=== PATIENT | male | born 1965 | race American Indian/Alaskan Native ===

== ENCOUNTER 2019-05-16 16:13 | Emergency (ER) | payer SELFPAY ==
--- NOTE | 2019-05-16 16:28 | Emergency Department Report ---
Blank Doc - Documentation Documentation: This is a 54-year-old male that presents with right ringer finger lac. This initial assessment/diagnostic orders/clinical plan/treatment(s) is/are subject to change based on patient's health status, clinical progression and re- assessment by fellow clinical providers in the ED. Further treatment and workup at subsequent clinical providers discretion. Patient/guardians urged not to elope from the ED as their condition may be serious if not clinically assessed and managed. Initial orders include: 1- Patient sent to [facility] for further evaluation and treatment
[2019-05-16 16:29] VITALS: BP 158/107
[2019-05-16] MEDS ORDERED: BOOSTRIX IM ONE (18:28)
--- NOTE | 2019-05-16 20:03 | Emergency Department Report ---
ED Laceration HPI - HPI Chief Complaint: Wound/Laceration Stated Complaint: FINGER LAC Time Seen by Provider: 05/16/19 16:27 Occurred When: Today Location: Upper Extremity Severity: mild Tetanus Status: Unknown Laceration Symptoms: Yes Pain, No Foreign Body Sensation, No Numbness, No Weakness Other History: Laceration finger on a tin can earlier today. The emergency department for further evaluation. Reports that he does have full range of motion. Pain is worse with palpation ED Review of Systems ROS: Stated complaint: FINGER LAC Other details as noted in HPI Comment: All other systems reviewed and negative ED Past Medical Hx - Past Medical History Previous Medical History?: No - Surgical History Past Surgical History?: Yes Additional Surgical History: right leg - Social History Smoking Status: Never Smoker Substance Use Type: Alcohol Laceration Physical Exam - Exam General: Vital signs noted. No distress. Alert and acting appropriately. Wound Length (cm): 0 (1.5 cm) Laceration Location: Upper Extremity Full Body Front + Back: 1 - Laceration to dorsum finger at the just below proximal interphalangeal joint Laceration Exam: Yes Normal Distal CMS, No Foreign Body, No Exposed Tendon, Vessel, or Nerve, No Tendon Injury ED Course Vital Signs 05/16/19 16:28 Temperature 98.0 F Pulse Rate 109 H Respiratory 20 Rate Blood Pressure 158/107 O2 Sat by Pulse 95 Oximetry - Laceration /Wound Repair Finger Wound Location: upper extremity Wound's Depth, Shape: linear Wound Explored: clean Wound Repaired With: Dermabond Progress: Placed in a splint Critical care attestation.: If time is entered above; I have spent that time in minutes in the direct care of this critically ill patient, excluding procedure time. ED Disposition Clinical Impression: Finger laceration Disposition: - TO HOME OR SELFCARE Is pt being admited?: No Does the pt Need Aspirin: No Condition: Stable Instructions: Finger Laceration (ED), Skin Adhesive Care (ED) Referrals: CARLOS PERALTA MD [Primary Care Provider] - 3-5 Days
== END 2019-05-16 20:01 | disposition home or self-care (01) ==
LOC: ED 16:13
DX: S61.212A Laceration without foreign body of right middle finger without damage to nail, initial encounter (principal); W45.8XXA Other foreign body or object entering through skin, initial encounter; Y93.89 Activity, other specified; Y92.89 Other specified places as the place of occurrence of the external cause; Y99.8 Other external cause status
CPT/HCPCS: 90471; 90715

== ENCOUNTER 2019-05-22 19:30 | Emergency (ER) | payer SELFPAY ==
[2019-05-22] MEDS ORDERED: TYLENOL PO ONE (20:24)
--- NOTE | 2019-05-22 20:24 | Event Note ---
ED Screening Note ED Screening Note: sp fall down the stairs co w wrist pain tylenol in triage This initial assessment/diagnostic orders/clinical plan/treatment(s) is/are subject to change based on patients health status, clinical progression and re- assessment by fellow clinical providers in the ED. Further treatment and workup at subsequent clinical providers discretion. Patient/guardian urged not to elope from the ED as their condition may be serious if not clinically assessed and managed. Initial orders include: sling xray ice
[2019-05-22] MEDS ORDERED: NORCO 5/325 PO ONE (21:00)
--- NOTE | 2019-05-22 21:23 | XRay Report ---
Examination: Right wrist radiograph, 4 views, 05/22/2019 Clinical information: Acute right wrist pain after fall. Comparison: None. Findings: There is a mildly impacted nondisplaced fracture of the distal radius with associated soft tissue swelling. No additional acute bony abnormality is identified. Signer Name: Sarah Cloud MD Signed: 05/22/2019 9:19 PM Workstation Name: [id number]
--- NOTE | 2019-05-22 21:25 | XRay Report ---
Examination: Right elbow radiograph, 2 views, 05/22/2019 Clinical information: Acute right elbow pain after trauma. Fall. Comparison: None. Findings: There is no evidence of acute bony fracture or dislocation of the left elbow. No significan t soft tissue swelling is identified. Signer Name: Sarah Cloud MD Signed: 05/22/2019 9:21 PM Workstation Name: [id number]
--- NOTE | 2019-05-22 22:50 | Emergency Department Report ---
ED Extremity Problem HPI - General Chief complaint: Extremity Injury, Upper Stated complaint: FALL/ARM INJURY Time Seen by Provider: 05/22/19 20:23 Source: patient Mode of arrival: Ambulatory Limitations: No Limitations - History of Present Illness Initial comments: Patient is a 54-year-old Citizen [place] male who is complaining of some right wrist and forearm pain. Patient states he was at work and tripped and fell down approximately 12 stairs. Patient tried to brace himself on the way down. This happened approximately 2 hours ago. He denies any head injury or loss of consciousness. Patient's only complaint is his right wrist and he has 10 out of 10 pain was worse with movement better with rest. Severity scale (0 -10): 9 - Related Data Previous Rx's Medication Instructions Recorded Last Taken Type HYDROcodone/APAP 5-325 [[place] 1 each PO Q6HR PRN #14 tablet 05/22/19 Unknown Rx 5/325] Ibuprofen [Motrin 800 MG tab] 800 mg PO Q8HR PRN #10 tablet 05/22/19 Unknown Rx Allergies Allergy/AdvReac Type Severity Reaction Status Date / Time No Known Allergies Allergy Verified 05/16/19 16:15 ED Review of Systems ROS: Stated complaint: FALL/ARM INJURY Other details as noted in HPI Comment: All other systems reviewed and negative ED Past Medical Hx - Past Medical History Previous Medical History?: No - Surgical History Past Surgical History?: Yes Additional Surgical History: right leg - Social History Smoking Status: Never Smoker Substance Use Type: None - Medications Home Medications: Home Medications Medication Instructions Recorded Confirmed Last Taken Type HYDROcodone/APAP 5-325 [[place] 1 each PO Q6HR PRN #14 tablet 05/22/19 Unknown Rx 5/325] Ibuprofen [Motrin 800 MG tab] 800 mg PO Q8HR PRN #10 tablet 05/22/19 Unknown Rx ED Physical Exam - General Limitations: No Limitations General appearance: alert, in no apparent distress - Head Head exam: Present: atraumatic, normocephalic - Eye Eye exam: Present: normal appearance - ENT ENT exam: Present: mucous membranes moist - Neck Neck exam: Present: normal inspection - Respiratory Respiratory exam: Absent: respiratory distress - Cardiovascular Cardiovascular Exam: Present: regular rate, normal rhythm - Rectal Rectal exam: Present: deferred - Extremities Exam Extremities exam: Present: normal inspection - Expanded Upper Extremity Exam Right Elbow exam: Present: normal inspection, full ROM, tenderness Forearm Wrist exam: Present: tenderness, swelling. Absent: deformity, dislocation - Back Exam Back exam: Present: normal inspection - Neurological Exam Neurological exam: Present: alert, oriented X3 - Psychiatric Psychiatric exam: Present: normal affect, normal mood - Skin Skin exam: Present: warm, dry, intact, normal color. Absent: rash ED Course Vital Signs 05/22/19 05/22/19 19:48 20:22 Temperature 98.0 F 99.6 F Pulse Rate 101 H 108 H Respiratory 18 18 Rate Blood Pressure 152/72 175/111 O2 Sat by Pulse 100 97 Oximetry ED Medical Decision Making - Radiology Data [facility] [address] [place] [address] XRay Report Signed Patient: MIRTA SINGLETARY JR MR#: [id number] : 1965 Acct:[id number] Age/Sex: 54 / M ADM Date: 05/22/19 Loc: ED Attending Dr: Ordering Physician: BRIAN MIKE Date of Service: 05/22/19 Procedure(s): XR wrist 3+V RT Accession Number(s): [id number] cc: BRIAN MIKE Fluoro Time In Minutes: Examination: Right wrist radiograph, 4 views, 05/22/2019 Clinical information: Acute right wrist pain after fall. Comparison: None. Findings: There is a mildly impacted nondisplaced fracture of the distal radius with associated soft tissue swelling. No additional acute bony abnormality is identified. Signer Name: Sarah Cloud MD Signed: 05/22/2019 9:19 PM Workstation Name: [id number] Transcribed By: EB Dictated By: Sarah Cloud MD Electronically Authenticated By: Sarah Cloud MD Signed Date/Time: 05/22/192118 DD/ 17 TD/TT: - Medical Decision Making Patient does have a nondisplaced fracture to the distal radius. Patient placed in a sugar tong splint and will be discharged home with pain meds and follow with Dr. Garcia's with orthopedics. Critical care attestation.: If time is entered above; I have spent that time in minutes in the direct care of this critically ill patient, excluding procedure time. ED Disposition Clinical Impression: Radius fracture Qualifiers: Encounter type: initial encounter Radius location: distal Fracture type: closed Fracture morphology: unspecified fracture morphology Laterality: right Qualified Code(s): S52.501A - Unspecified fracture of the lower end of right radius, initial encounter for closed fracture Disposition: DC TO HOME OR SELFCARE Is pt being admited?: No Does the pt Need Aspirin: No Condition: Stable Instructions: Wrist Fracture in Adults (ED) Referrals: DAYDAY WELLS MD [Staff Physician] - 3-5 Days Time of Disposition: 22:52
[2019-05-22 23:17] VITALS: BP 173/112
== END 2019-05-22 23:23 | disposition home or self-care (01) ==
LOC: ED 19:30
DX: S52.591A Other fractures of lower end of right radius, initial encounter for closed fracture (principal); Z79.899 Other long term (current) drug therapy; W10.8XXA Fall (on) (from) other stairs and steps, initial encounter; Y93.89 Activity, other specified; Y92.89 Other specified places as the place of occurrence of the external cause; Y99.0 Civilian activity done for income or pay

== ENCOUNTER 2022-03-22 23:02 | Emergency (ER) | payer OTHER | END 2022-03-23 08:05 | disposition left against medical advice (07) | LOC: ED 23:02 | DX: S09.90XA Unspecified injury of head, initial encounter (principal); Z53.21 Procedure and treatment not carried out due to patient leaving prior to being seen by health care provider; V89.2XXA Person injured in unspecified motor-vehicle accident, traffic, initial encounter; Y93.89 Activity, other specified; Y92.89 Other specified places as the place of occurrence of the external cause; Y99.8 Other external cause status ==